=== PATIENT | male | born 1975 | race Caucasian/White ===

== ENCOUNTER 2017-09-16 20:17 | Inpatient (IN) | payer OTHER ==
[~2017-09-16] VITALS: Ht 170.2 cm; Wt 68.2 kg
--- NOTE | ~2017-09-16 | CON ---
[place], [place] REPORT OF CONSULTATION NAME: SUSANNE CHINO JR UNIT #: [id number] ROOM: 426 DOCTOR: ALYSHA IBRAHIM MD BIRTHDATE: [birth year] DOS: 09/17/2017 PULMONARY CONSULTATION CONSULTATION REQUESTED BY: Hospitalist services. REASON FOR CONSULTATION: Medical assessment and medical management for pulmonary standpoint for the bilateral pulmonary nodules. HISTORY OF PRESENT ILLNESS: The patient unable to give any history at this time, but noted drowsy with intermittent wakefulness and not accurately give any history. All the history contained document is reviewed of the patient's medical record documented by the other physician including primary care attending. This is a 41-year-old male who has been known with history of illicit drug use intravenously as well as the use of cocaine. The patient has been brought to the hospital, developed significant body ache, nausea, toothache, and described with symptoms of chest congestion and running fever at home. The symptoms had been described to be worsened. The duration of symptoms was unknown. The patient denies any symptoms of chest pain. She had been prescribed some antibiotic primary care physician for the medical management of toothache in the past one week. The patient denies any symptoms of hemoptysis. He denies any symptoms of chest trauma. The pain was described generalized in the chest and other parts of the body at this time. REVIEW OF SYSTEMS: CONSTITUTIONAL: Fatigue and tiredness was reported with the fever. EYES: Denies any burning, tenderness, discharge or redness. EARS, NOSE AND THROAT: Denies sore throat, hoarseness, otalgia, postnasal drainage or epistaxis. CARDIOVASCULAR: Denies angina pain, edema or pain of the lower extremity. GASTROINTESTINAL: Denies nausea, vomiting, diarrhea, abdominal pain, hematemesis, or melena. SKIN: Denies any lesions or rashes. CENTRAL NERVOUS SYSTEM: Denies any seizures, diplopia, or headache. The remaining systems were reviewed. They were noted all negative. PAST MEDICAL HISTORY: 1. Noted with history positive for use of the crack cocaine, IV heroin use and the fentanyl use as well. 2. History of hepatitis C. 3. Chronic nicotine abuse. SOCIAL HISTORY: The patient reported not . Tobacco use noted a pack of cigarettes per day for several years, started in the teens. Denies any history of alcohol use, but noted with IV drug abuse. PAST SURGICAL HISTORY: Reported: 1. Cholecystectomy. [place], [place] REPORT OF CONSULTATION NAME: SUSANNE CHINO JR UNIT #: [id number] ROOM: 426 DOCTOR: ALYSHA IBRAHIM MD BIRTHDATE: [birth year] 2. Carpal tunnel repair. FAMILY HISTORY: The patient's mother is living 59-year-old with history of hypertension, atrial fibrillation, history about the dad was unknown. HOME MEDICATIONS: None listed. DRUG ALLERGY HISTORY: The patient reported as no known drug allergies. PHYSICAL EXAMINATION: GENERAL: This is a 41-year-old white male who appeared to be a somewhat drug withdrawal at this time, symptom complaining of generalized pain with the decrease with other intermittent sleepiness and drowsiness. VITAL SIGNS: Height were recorded by the nursing staff on admission with height of 5 feet 7 inches, weight 150 pounds, BMI 23.5. Vital signs was noted as temperature of 100.6 Fahrenheit to low grade fever of 99.8 degree Fahrenheit, respiratory rate 19-24, heart rate of 129-105, blood pressure 122/86-116/62. Intake was 3300 mL, output 800 mL, since admission. Pulse oxygen saturation, 96% saturation on room air at rest. HEENT: Head was atraumatic. Eyes nonicterus. Oral mucosa was moist. NECK: Supple. CARDIOVASCULAR SYSTEM: S1, S2 is audible. LUNGS: Noted without any wheezing or crackles. Breaths sounds are noted mild to moderately decreased bilaterally. ABDOMEN: Soft, nontender. EXTREMITIES: The patient was noted without any edema, clubbing, cyanosis. SKIN: Visible skin does not show rashes or any needle track ponce with localized area of cellulitis on the visible skin. GENITOURINARY: The patient is unable to assess, but the patient does follow vocal commands and move his upper and lower extremities without any obvious focal neurologic deficit. MUSCULOSKELETAL: No deformities. LABORATORY DATA: The patient's urine drug screen on admission cocaine was noted greater than 300, opiates noted greater than 300. The influenza A and B, nasal washing antigen both noted negative. The lactic acid 3.3 on admission, on follow up 2.0. PT/INR yesterday noted normal on admission. The urinalysis was noted with 1+ bilirubin, 2+ protein and 1+ bacteria. The CMP yesterday on admission, normal BUN and creatinine. Sodium was noted decreased 129, potassium 3.3, chloride of 93. The patient was noted normal with correction of albumin, which are noted 2.8 and calcium 8.0 without correction. CBC that was done on admission, WBC count 12.8, hemoglobin 11.8, hematocrit 35.4, platelet count was normal. The troponin which was noted yesterday and this morning normal. CBC today: WBC count 11.5, hemoglobin 10.1, hematocrit 30.6, platelet count was normal. PT/INR noted at 1.2. Blood culture that was done on admission, the aerobic bottle noted gram-positive in clusters in first bottle. Second bottle aerobic, anaerobic blood culture was noted with Gram-positive cocci in clusters reported. The review of the radiology data was personally performed. Chest x-ray showed coarse markings with the patient present in the lungs bilaterally with patchy infiltration was suspected in the right lower lobe and in the left [place], [place] REPORT OF CONSULTATION NAME: SUSANNE CHINO JR UNIT #: [id number] ROOM: 426 DOCTOR: MARIBETH IBRAHIM MDM BIRTHDATE: [birth year] perihilar area of linear atelectasis. The patient was noted in the right lower lung base. There was no evidence of pneumothorax, pleural fluid or findings of congestive heart failure. The CT scan of the chest was completed yesterday for the patient that was personally reviewed. First the parenchymal images shows soft tissue density nodules were noted close to the subpleural area randomly present bilaterally with some area of ground glass opacities nodule formation as well. Evidence of old rib fracture was noted in the right posterior rib as well. The mediastinal structure because of lack of IV contrast cannot be clearly seen especially for the lymphadenopathy. IMPRESSION: 1. The patient who has been currently admitted to the hospital. Current symptoms were noted in combination strongly suspected or endocarditis very likely with a history of IV drug use. 2. The patient to be tested for the human immunodeficiency virus infection because of long-term IV use and medications. 3. Old rib fracture, 2 of them were noted in the 9th and 10th rib posteriorly. 4. The patient with a history of chronic nicotine dependence as well. PLAN OF MANAGEMENT: The patient would be continued on the antibiotics as ordered as vancomycin, Zosyn and azithromycin. The vancomycin needs to be the most important medication to be used. The other antibiotic certainly could be discontinued based on the current culture results. The patient will be recommended about cardiology consultation with transesophageal echocardiogram done. The patient definitively exclude the endocarditis. Closely monitor respiratory symptom and drug withdrawal and to be treated accordingly drug withdrawal protocol for opioids. Monitoring the respiratory symptom very closely. Supportive care therapy, plan of management. Continue to be done. Electrolyte imbalance ____ as well. Additional treatment changes or recommendation will be given based on the progression of the illness. Thanks for allowing me to participate in the care of this patient. ALYSHA FAM MD CM:CONSTR:REPORT OF CONSULTATION 1933 09/18/17 0458 interface
--- NOTE | ~2017-09-16 | CON ---
[place], [place] REPORT OF CONSULTATION NAME: SUSANNE CHINO JR UNIT #: [id number] ROOM: 426 DOCTOR: MITUL VILLANUEVA,DECEMBER BIRTHDATE: [birth year] DOS: 09/16/2017 HISTORY OF PRESENT ILLNESS: This is a 41-year-old male who was admitted yesterday from home complaining of body aches, nausea, toothache, chest congestion and fevers. He is an IV drug user, positive for uses of cocaine, heroin and fentanyl, last used yesterday morning. History is obtained per review of the chart. The patient is alert and moaning, wandering in his room complaining of pain all over, but will not answer most questions for review of systems. His admitting blood cultures are positive for gram-positive cocci in clusters. He is currently on Levaquin, vancomycin and Zosyn. Cardiology has been consulted and they are arranging a YENNY to evaluate for endocarditis. ID is consulted for Gram-positive cocci septicemia, likely Staphylococcus aureus due to IV drug use. PAST MEDICAL HISTORY: As above. He has a history of hepatitis C for which he has never gotten treatment as he has not been able to get clean in order to receive treatment. He is also a smoker 20 years 1 pack per day, history of carpal tunnel repair and cholecystectomy. SOCIAL HISTORY: As above. Nondrinker. Again, he is a smoker and polysubstance abuser. FAMILY MEDICAL HISTORY: Mother alive at the age of 59 with hypertension and AFib. Father's medical history is unknown. ALLERGIES: No known drug allergies. CURRENT MEDICATIONS: Include Levaquin, [place], vancomycin, Zosyn, [id number], Zithromax, Lovenox, Protonix, Zofran, Restoril, milk of magnesia and Dulcolax. RADIOLOGY: Abdominal ultrasound was unremarkable. Chest CT showed multiple noncalcified nodules and possible mild pneumonitis. REVIEW OF SYSTEMS: As above in history of present illness and again the patient will not give any review of systems. No emesis or diarrhea per nursing. He has been running fevers, low grade up to 100.6. LABORATORY DATA: WBCs were 12.8 on admission, down to 11.5 today and platelets 169. BUN 8, creatinine 0.83. LFTs within normal limits. Respiratory viral panel and influenza are pending. His tox screen was positive for opiates and cocaine. PHYSICAL EXAMINATION: VITAL SIGNS: Temperature 99.3, pulse 98, respirations 20 and BP 110/72. GENERAL: A 41-year-old male, in moderate distress, again wandering his room and somewhat incoherent complaining of pain all over, seems somewhat confused. HEAD, EYES, EARS, NOSE AND THROAT: Normocephalic, no visible thrush. NECK: Supple. LUNGS: Clear to auscultation bilaterally. Respirations even and unlabored. [place], [place] REPORT OF CONSULTATION NAME: SUSANNE CHINO JR UNIT #: [id number] ROOM: 426 DOCTOR: MITUL VILLANUEVA,DECEMBER BIRTHDATE: [birth year] HEART: Regular rhythm. No murmur appreciated. ABDOMEN: Soft, nondistended, positive bowel sounds. EXTREMITIES: No lower extremity edema or deformity. Some slight trace edema of his hands. No areas of cellulitis or phlebitis noted. SKIN: Warm, dry, free of rashes. He does have multiple tattoos. ASSESSMENT AND PLAN: Gram-positive cocci likely Staphylococcus septicemia due to his intravenous drug abuse. We will also check an human immunodeficiency virus. He is already known to be positive for hepatitis C and has not received treatment as he has not been able to get clean. He is to be set up a YENNY for Cardiology. Stop the Zithromax and Zosyn. Continue the vancomycin. Follow up on repeat blood cultures. Case discussed with Dr. Idalia Moeller. JONELLE KAY BAUMAN IDALIA MOELLER MD CM:CONSTR:REPORT OF CONSULTATION 1703 09/18/17 0121 interface
--- NOTE | ~2017-09-16 | PR ---
[place], [place] PROGRESS NOTE NAME: SUSANNE CHINO JR UNIT #: [id number] ROOM: 426 DOCTOR: SARWAT RODRIGUEZ MD,ALYSHA BIRTHDATE: [birth year] DOS: 09/20/2017 SUBJECTIVE: The patient has been noted comfortable at this time, resting on the bed. Denies symptoms of chest pain. She does not have any symptoms of cough or any sputum expectoration. The body aches of the patient was noted better. OBJECTIVE: VITAL SIGNS: Low grade fever noted 100 degrees Fahrenheit of the patient yesterday and noted afebrile this morning. The respiratory rate 18, heart rate 80, blood pressure 140/87. The pulse oxygen saturation on room air 98% saturation. HEENT: Examination shows head was atraumatic. Eyes nonicterus. NECK: Supple. CARDIOVASCULAR: S1, S2 audible. LUNGS: Clear. ABDOMEN: Soft, nontender. EXTREMITIES: Does not show any deformities. SKIN: No lesions or rashes. MUSCULOSKELETAL: The patient was noted any deformities. CENTRAL NERVOUS SYSTEM: Intact without any focal deficit. LABORATORY DATA: The patient's HIV tested for generation, was noted as negative. The echocardiogram for the patient that was completed, transesophageal echocardiogram yesterday for the patient done by Dr. Steward for the patient reported with findings of aortic valve vegetation as well as the atrial side of the septal leaflets and tricuspid valve was also noted with vegetation as well. [id number]-[id number] tricuspid valvular regurgitation was also reported. Left ventricle ejection fraction was noted normal. IMPRESSION: 1. The patient with bacterial endocarditis of the patient with bacteremia gram-positive organs. Methicillin-resistant Staphylococcus aureus for this patient was noted with blood cultures. Negative HIV status. The patient has history of IV drug use. 2. Septic emboli for this patient noted in the lungs consistent with current diagnosis corresponding. PLAN OF MANAGEMENT: Continue antibiotics for this patient at this time per recommendation by the Infectious Disease specialist for the endocarditis Close monitoring will be continued. If the patient remained persistently bacteremic, he may require a surgical intervention for the current ____ might be needed. Continue other supportive therapy, plan of management, and care plan. Usual treatment. Additional treatment changes will be ordered for the patient based on progression of the illness. [place], [place] PROGRESS NOTE NAME: LULÚ DEVISUSANNE CHAVEZT #: [id number] UNIT #: [id number] ROOM: 426 DOCTOR: ALYSHA IBRAHIM MD BIRTHDATE: [birth year] ALYSHA FAM MD CM:PNTRANS [id number] ALYSHA RODRIGUEZ MD 09/21/17238 interface
--- NOTE | ~2017-09-16 | PR ---
[place], [place] PROGRESS NOTE NAME: SUSANNE CHINO JR UNIT #: [id number] ROOM: 426 DOCTOR: SARWAT RODRIGUEZ MD,ALYSHA BIRTHDATE: [birth year] DOS: 09/19/2017 SUBJECTIVE: He has been currently noted n.p.o. and plan for further workup to be done for possibility of endocarditis with current appear like septic emboli in the lungs. He has not been noted any symptoms of chest pain. He does have some cough which remains nonproductive. OBJECTIVE: VITAL SIGNS: Which has been recorded showed the temperature noted normal, respiratory rate 17, heart rate 85, blood pressure 111/75. Pulse oxygen saturation on room air was 98% saturation. HEAD, EARS, EYES, NOSE AND THROAT: Showed no acute change. NECK: Supple. CARDIOVASCULAR SYSTEM: S1, S2 is audible. LUNGS: Noted without any crackles or wheezing. Breaths are noted mildly diminished bilaterally. ABDOMEN: Soft, nontender. LABORATORY DATA: MRI of the thoracic spine done, which was noted as normal. Urine culture was also noted with light growth of MRSA isolation. IMPRESSION: Possibility of septic emboli with IV drug use. Further workup and any additional problem the patient has been noted in progress. History of chronic nicotine dependence as well. PLAN OF MANAGEMENT: No changes in the plan of therapy at this time will be needed. Continuation of all other therapy, plan and management as previously. Usual care. ALYSHA FAM MD CM:PNTRANS [id number] ALYSHA RODRIGUEZ MD 09/19/172002 interface
--- NOTE | ~2017-09-16 | PR ---
[place], [place] PROGRESS NOTE NAME: SUSANNE CHINO JR UNIT #: [id number] ROOM: 426 DOCTOR: MYLENE VAZQUEZDEMIAN BIRTHDATE: [birth year] DOS: 09/22/2017 SUBJECTIVE: The patient was seen and examined at bedside. The patient was sitting upright in the bed in no acute distress. The patient has no new complaints today, reports that he feels like he is getting better. The patient understands the current plan as far as antibiotics long-term to help treat his endocarditis. No change in patient's clinical status from yesterday. Blood cultures from the were positive for gram-positive cocci in clusters. OBJECTIVE: VITAL SIGNS: Temperature 98.0, pulse is 66, respirations 20, blood pressure 110/64, pulse ox is 94% on room air. GENERAL APPEARANCE: The patient is alert and oriented times 3, in mild distress. HEENT: Eyes are clear. No injection. Nares are patent. Mucous membranes are moist. NECK: Supple, nontender. CARDIOVASCULAR: S1 and S2 noted. Regular rate and rhythm. No murmurs, gallops or rubs. PULMONARY: Lungs are clear to auscultation. No wheezes, no rales. ABDOMEN: Soft, nontender with positive bowel sounds. EXTREMITIES: No cyanosis, no clubbing, no erythema, no edema. NEUROLOGIC: No focal deficits. SKIN: No rashes or erythema noted on the skin exam. IMPRESSION: 1. Bacterial endocarditis with bacteremia, gram-positive for MRSA. Blood cultures have been positive times 3, negative HIV lab. Endocarditis on both the tricuspid and the aortic valve, history of IV drug abuse. 2. Septic emboli to the lungs from the endocarditis. PLAN OF CARE: Continue current antibiotics being directed by the infectious disease team. No change in respiratory care of this patient. The patient will need IV antibiotics for a minimum of 6 weeks. Primary team is working on the plan with social media project manager for the care of this patient and for discharge planning. DEMIAN CHAKRABORTY DO [place], [place] PROGRESS NOTE NAME: SUSANNE CHINO JR UNIT #: [id number] ROOM: 426 DOCTOR: DEMIAN CHAKRABORTY DO BIRTHDATE: [birth year] ALYSHA FAM MD CM:JOSE ALBERTO [id number] DEMIAN CHAKRABORTY DO 09/22/17 1234 interface
--- NOTE | ~2017-09-16 | PR ---
[place], [place] PROGRESS NOTE NAME: SUSANNE CHINO JR UNIT #: [id number] ROOM: 426 DOCTOR: SUNNI VILLAFUERTE,IDALIA Barron BIRTHDATE: [birth year] DOS: 09/17/2017 ADDENDUM After reviewing the chart, labs, radiographs and microbiology, I agree with the above plans as described. We will follow the patient up clinically and adjust accordingly. IDALIA MOELLER MD CM:PNTRANS [id number] 5 IDALIA MOELLER MD 09/18/17915 interface
--- NOTE | ~2017-09-16 | PR ---
[place], [place] PROGRESS NOTE NAME: SUSANNE CHINO JR UNIT #: [id number] ROOM: 426 DOCTOR: DEMIAN CHAKRABORTY DO BIRTHDATE: [birth year] DOS: 09/21/2017 SUBJECTIVE: The patient was seen and examined at bedside. The patient was sitting upright in bed. The patient is in no acute distress at this time. The patient complains of no new symptoms this morning. The patient understands the current treatment plan and we are currently working with Drum Stenciler to come up with an ultimate plan where the patient can be discharged for further treatment from the hospital. OBJECTIVE: VITAL SIGNS: Temperature 98.2, pulse is 84, respirations 18, blood pressure 110/64, pulse ox is 93% on room air. LABS: White count 8.7, hemoglobin 10.9, hematocrit 33.2, platelets are 244. BMP this morning was normal. GENERAL APPEARANCE: The patient is alert and oriented x 3, in no acute distress. HEENT: Head is atraumatic, normocephalic. Eyes are clear to injection. NECK: Supple. No tenderness. CARDIOVASCULAR: S1 and S2 is audible. No murmurs, gallops or rubs. LUNGS: Clear to auscultation. ABDOMEN: Soft, nontender. EXTREMITIES: No deformities. SKIN: No rashes. MUSCULOSKELETAL: Normal exam. NEUROLOGIC: Intact without any gross focal deficits. IMPRESSION: 1. Bacterial endocarditis with bacteremia, gram-positive for MRSA. Negative HIV labs. The patient is an IV drug user. 2. Septic emboli to the lungs from the endocarditis. PLAN OF CARE: Current antibiotics being directed by the Infectious Disease team. Agree with the current antibiotics, currently ordered. Continue with close monitoring. The patient will need a minimum of 6 weeks of IV antibiotics for his endocarditis. No change in current plan or therapy at this time. We will continue to follow. DEMIAN CHAKRABORTY [place], [place] PROGRESS NOTE NAME: SUSANNE CHINO JR UNIT #: [id number] ROOM: 426 DOCTOR: DEMIAN CHAKRABORTY DO BIRTHDATE: [birth year] ALYSHA FAM MD CM:PNGILES 12 31 DEMIAN CHAKRABORTY DO 09/21/171331 interface
--- NOTE | ~2017-09-16 | PR ---
[place], [place] PROGRESS NOTE NAME: SUSANNE CHINO JR UNIT #: [id number] ROOM: 426 DOCTOR: SUNNI VILLAFUERTE,IDALIA Barron BIRTHDATE: [birth year] DOS: 09/18/2017 ADDENDUM. I agree with the above plans as described. We will continue to follow the patient up clinically and adjust accordingly. IDALIA MOELLER MD CM:PNTRANS [id number] [id number] IDALIA MOELLER MD 09/19/17 1320 interface
--- NOTE | ~2017-09-16 | PR ---
[place], [place] PROGRESS NOTE NAME: SUSANNE CHINO JR UNIT #: [id number] ROOM: 426 DOCTOR: MITUL VILLANUEVA,DECEMBER BIRTHDATE: [birth year] DOS: SUBJECTIVE: The patient is a 41-year-old IV drug user who was admitted with Gram-positive cocci in clusters in his blood. His blood cultures from the 5th and 6th are all growing gram-positive cocci in clusters. His influenza screen was negative. His blood cultures from today are pending. He is currently complaining of pain all over, but primarily in his upper back and neck. He denies any numbness or tingling or weakness of his arms or hands or lower extremities. No nausea, vomiting or diarrhea. No rash or itch. No cough or shortness of breath. He has been afebrile. LABORATORY DATA: WBC is 11.3, platelets 170. BUN 5, creatinine 0.72. Vancomycin trough was 4.1, dose has been adjusted per pharmacy. CURRENT MEDICATIONS: Include vancomycin, Percocet, Toradol, vitamin D, Requip, Robaxin, Vistaril, Bentyl, Lovenox, Protonix, Restoril, milk of mag. REVIEW OF SYSTEMS: Further review of systems is unremarkable. PHYSICAL EXAMINATION: VITAL SIGNS: Show temperature 97.9, pulse 96, respirations 20, BP 102/58. GENERAL: A 41-year-old male, somewhat in distress. HEAD, EYES, EARS, NOSE AND THROAT: Normocephalic, no thrush. Tender along the cervical spine as well as upper thoracic. LUNGS: Crackles bilateral bases. Respirations slightly labored due to pain. HEART: Regular rhythm. No murmur appreciated. ABDOMEN: Soft, nondistended, positive bowel sounds. EXTREMITIES: Trace edema of the left upper extremity, otherwise no peripheral edema, no cyanosis or deformity. SKIN: Warm, dry, free of rashes. Multiple tattoos noted. ASSESSMENT: Staph septicemia with likely endocarditis due to IV drug abuse with a significant concern for possible thoracic involvement or cervical. PLAN: He needs to have an MRI of thoracic and cervical spine with and without contrast. Continue the IV vancomycin and watch the creatinine. He is requiring quite a high dose to get his levels up to therapeutic. Follow up on repeat blood cultures from today and repeat blood cultures again tomorrow. He has already been seen by Dr. Bauman with Cardiology who is arranging for a YENNY to be done on Tuesday. Case discussed with Dr. Idalia Moeller. DECEMBER KAY BAUMAN [place], [place] PROGRESS NOTE NAME: SUSANNE CHINO JR UNIT #: [id number] ROOM: 426 DOCTOR: MITUL VILLANUEVA,DECEMBER BIRTHDATE: [birth year] IDALIA MOELLER MD CM:PNGILES 09 11 MITUL VILLANUEVA 09/18/171811 interface
--- NOTE | ~2017-09-16 | PR ---
[place], [place] PROGRESS NOTE NAME: SUSANNE CHINO JR UNIT #: [id number] ROOM: 426 DOCTOR: SARWAT RODRIGUEZ MD,ALYSHA BIRTHDATE: [birth year] DOS: 09/18/2017 PULMONARY PROGRESS NOTE SUBJECTIVE: The patient has not been noted any ongoing new complaints, still complaining of pain and aches in the body. He does not have any coughing, sputum expectoration. Denies any chest pain. He does not have symptoms of hemoptysis and remains afebrile. OBJECTIVE: VITAL SIGNS: Normal temperature, respiratory rate 20, heart rate 96, blood pressure 112/58. The pulse oxygen saturation on room air 94% saturation. HEENT: No new change. NECK: Supple. CARDIOVASCULAR: S1, S2 audible. LUNGS: Noted without any wheezing or crackles at this time. ABDOMEN: Soft, nontender. IMPRESSION: Possibility of endocarditis with history of illicit drug use and dependence on opiates, heroin as well as cocaine. PLAN OF MANAGEMENT: No change in pulmonary standpoint. Further cardiac workup for the patient has been initiated. Appropriate consultations were ordered for cardiology services and infectious disease specialist. ALYSHA FAM MD CM:JOSE ALBERTO [phone] ALYSHA RODRIGUEZ MD 09/19/17215 interface
--- NOTE | ~2017-09-16 | PR ---
[place], [place] PROGRESS NOTE NAME: SUSANNE CHINO JR UNIT #: [id number] ROOM: 426 DOCTOR: ALYSHA IBRAHIM MD BIRTHDATE: [birth year] DOS: 09/21/2017 ADDENDUM SUBJECTIVE: The patient was independently seen and examined today with [id number] encounter. The patient history was confirmed. Physical examination performed. All the lab for the patient available in the computer were reviewed. The assessment, management recommendation personally made. Note done by the medical dosimetrist was approved as well. He has been noted comfortable at this time without any acute distress, pain, coughing, or sputum expectoration, chest pain. OBJECTIVE: VITAL SIGNS: The patient was noted as afebrile status, respiratory rate 18, heart rate 84, blood pressure was normal. The pulse oxygen saturation was recorded as 90% on room air. HEAD, EARS, EYES, NOSE AND THROAT: Noted without any acute changes. LUNGS: Clear to auscultation bilaterally. ABDOMEN: Soft, nontender. EXTREMITIES: Without any edema. LABORATORY DATA: Blood culture from 09/19 one of every 2 bottle aerobic bottle, both was noted as Gram-positive cocci in clusters. IMPRESSION: The patient with findings of bilateral septic pulmonary emboli related to the endocarditis of the tricuspid, and the aortic valve. Persistent bacteremia was still noted. PLAN OF MANAGEMENT: Antibiotic recommendation per the Infectious Disease Services. Continue pulmonary management. The patient without any changes. Obtain a routine chest x-ray to reassess. The progression of the previous septic emboli visible. Other supportive plan of management will be continued without any changes. [place], [place] PROGRESS NOTE NAME: SUSANNE CHINO JR UNIT #: [id number] ROOM: 426 DOCTOR: ALYSHA IBRAHIM MD BIRTHDATE: [birth year] ALYSHA FAM MD CM:PNTRANS [phone] ALYSHA RODRIGUEZ MD 09/21/171942 interface
--- NOTE | ~2017-09-16 | PR ---
[place], [place] PROGRESS NOTE NAME: SUSANNE CHINO JR UNIT #: [id number] ROOM: 426 DOCTOR: SARWAT RODRIGUEZ MD,ALYSHA BIRTHDATE: [birth year] DOS: 09/22/2017 The patient was independently seen and examined, [id number] encounter, history was confirmed. Physical examination was performed personally. The patient has not been reporting any symptoms of shortness of breath, coughing, chest pain or sputum expectoration. Continue to get intravenous antibiotic treatment for the MRSA infection, noted persistent positive bacteremia for this patient with different cultures. The patient has been currently planned for the possible discharge for intravenous therapy. PHYSICAL EXAMINATION: Personally performed, does not show any abnormal wheezing, crackles, or heart murmurs. The abdomen noted, soft, nontender. Extremities without any edema. Pulse oxygen saturation on room air was noted 94%. LABORATORY DATA: Review for this patient of 09/20, blood culture was noted gram-positive cocci in clusters and 09/19 culture also noted positive for same organism as MRSA previously isolated. BUN and creatinine was noted as normal. IMPRESSION: The patient has been noted with severe endocarditis of 2 valve with aortic and tricuspid valve with a pulmonary nodule. The patient has septic emboli. History of intravenous drug use, negative HIV status, which were tested on this admission. PLAN OF TREATMENT: From the pulmonary standpoint, the patient would be continue to take antibiotics as ordered. The patient under guidance of the Infectious Disease specialist. The chest x-ray of the patient, which was noted yesterday was noted with interstitial marking increased without any large pulmonary infiltration, cavitation or other abnormalities. Agree with the note of patient which was done by the medical van driver for the patient today's followup visit as well. ALYSHA FAM MD CM:JOSE ALBERTO [phone] ALYSHA RODRIGUEZ MD 09/23/17 1056 interface
--- NOTE | ~2017-09-16 | PR ---
[place], [place] PROGRESS NOTE NAME: SUSANNE CHINO JR [facility] [id number] UNIT #: [id number] ROOM: 426 DOCTOR: TOYIN WHITE MD BIRTHDATE: [birth year] DOS: 09/19/2017 CARDIOLOGY PROGRESS NOTE. The patient was seen at his bedside today, 09/19/2017 for followup of Gram-positive bacteremia. He feels "like shit" and tells me that he is thirsty and hurts all over. He denies dyspnea or cough. LABORATORY DATA: Review of his laboratory studies show that he has had several positive blood cultures for Staph aureus as well as a urine culture positive for Staph aureus. His white count has been elevated at 12,800, but is falling steadily. He is anemic with the hemoglobin of 9.7. He does not show any signs of acute renal injury. PHYSICAL EXAMINATION: VITAL SIGNS: Today, his pulse is 98 and regular, blood pressure is 110/67. He is afebrile. NECK: Supple. He has no jugular distention. Carotids are full. LUNGS: Respirations are unlabored. His chest is clear. HEART: Has a regular rhythm. He has a fourth heart sound, but no third heart sound. There is a grade 2/6 systolic ejection murmur along the left sternal border, but no diastolic murmurs. The PMI is not displaced. ABDOMEN: Benign. EXTREMITIES: Showed no edema. Peripheral pulses are palpable in the feet. IMPRESSION: 1. Multiple blood cultures positive for gram-positive cocci in clusters. Identification of the organism is Staph aureus and it is felt to be an MRSA. 2. History of multiple drug abuse including intravenous drug abuse. 3. History of hepatitis C. 4. Severe protein calorie malnutrition. 5. Tobacco abuse. 6. Cocaine abuse. 7. Heroin abuse. PLAN: The patient almost certainly does have endocarditis. We will proceed with a transesophageal echocardiogram today to determine the extent of his infection and document the existence and extent of cardiac complications. If bulky vegetations are seen then he probably will need to be transferred to a tertiary facility for surgical management. I did discuss transesophageal echocardiography with the patient today including risk of sore throat, vomiting, aspiration pneumonia, anesthesia reactions, etc. The patient understands and agrees to proceed. [place], [place] PROGRESS NOTE NAME: SUSANNE CHINO JR UNIT #: [id number] ROOM: 426 DOCTOR: TOYIN WHITE MD BIRTHDATE: [birth year] TOYIN WHITE MD CM:PNTRANS [id number] TOYIN WHITE MD 09/19/17 1149 interface
[~2017-09-16 20:17] MED LIST: BACTRIM DS 8001 TA1 PO; CEPHALEXIN500 M1 PO; CLEOCIN150 MG PO; HYDROCODONE BIT1 T11 PO; METHADONE10 MG PO; NAPROSYN500 MG PO; VIBRAMYCIN100 MG PO; VICODIN ES 7501 TAB PO; ZOFRAN4 MG PO
[2017-09-16 20:29] VITALS: BP 115/67
[2017-09-16 20:44] LABS: BILIRUBIN 1+ (NEGATIVE); BLOOD 2+ (NEGATIVE); CLARITY SL CLOUDY (CLEAR); COLOR YELLOW (YELLOW); GLUCOSE NEGATIVE (NEGATIVE); KETONE TRACE (NEGATIVE); LEUKO ESTERASE NEGATIVE (NEGATIVE); NITRITE NEGATIVE (NEGATIVE); PH 6.5 (5.0-9.0)
[2017-09-16 20:50] LABS: BACTERIA 1+
[2017-09-16 20:52] LABS: MUCOUS 1+
[2017-09-16 20:53] LABS: RBC 21-30 rbc/hpf (0-2)
[2017-09-16 20:58] LABS: URINE AMPHETAMINES < 1000 (1000ng/ml); URINE BARBITURATES < 200 (200ng/ml); URINE BENZODIAZEPINES < 200 (200ng/ml); URINE CANNABINOIDS (THC) < 50 (50ng/ml); URINE COCAINE > 300 (300ng/ml); URINE METHADONE < 300 (300ng/ml); URINE OPIATES > 300 (300ng/ml)
[2017-09-16 21:01] LABS: URINE PHENCYCLIDINE < 25 (25ng/ml)
[2017-09-16 21:25] LABS: HEMATOCRIT 35.4 % (42.0-52.0); HEMOGLOBIN 11.8 g/dl (14.0-18.0); MEAN CELL VOLUME 88.1 fl (80.0-94.0); MEAN CORPUSCULAR HGB 29.4 pg (27.0-31.0); MEAN CORPUSCULAR HGB CONC 33.3 g/dl (33.0-37.0); MEAN PLATELET VOLUME 10.7 fl (9.6-12.3); PLATELET COUNT AUTOMATED 199 10*3/uL (130-400); RED BLOOD COUNT 4.02 10*6/uL (4.50-5.90); RED CELL DISTRI WIDTH 14.4 % (0-14.5); WHITE BLOOD COUNT 12.8 10*3/uL (4.8-10.8)
[2017-09-16 21:37] LABS: INTERNATIONAL NORM RATIO 1.1 (2.0-3.5)
[2017-09-16 21:43] LABS: ALBUMIN 2.8 gm/dl (3.1-4.5); ALKALINE PHOSPHATASE 109 U/L (45-117); BUN 11 mg/dl (7-24); CHLORIDE 93 mmol/L (98-107); CREATININE 0.82 mg/dL (0.70-1.30); LIPASE 94 U/L (73-393); POTASSIUM 3.3 mmol/L (3.5-5.1); SGOT/AST 30 IU/L (3-35); SGPT/ALT 25 U/L (12-78); SODIUM 129 mmol/L (136-145); TOTAL PROTEIN 7.5 gm/dL (6.4-8.2)
[2017-09-16 21:50] LABS: TOTAL CELLS COUNTED 100 #CELLS
[2017-09-16 21:51] LABS: PLATELET SUFFICIENCY NORMAL (NORMAL); POLYCHROMASIA SLIGHT
[2017-09-16 22:24] VITALS: BP 122/68
[2017-09-16 22:53] VITALS: BP 116/62
[2017-09-16 23:10] VITALS: BP 104/62
[2017-09-17] VITALS: BP 123/72
[2017-09-17 04:00] VITALS: BP 105/52
[2017-09-17 04:32] LABS: BASO % 0.1 % (0.0-1.0); HEMATOCRIT 30.6 % (42.0-52.0); HEMOGLOBIN 10.1 g/dl (14.0-18.0); LYMPH # 0.6 10*3/uL (1.3-4.4); MEAN CELL VOLUME 90.3 fl (80.0-94.0); MEAN CORPUSCULAR HGB 29.8 pg (27.0-31.0); MEAN PLATELET VOLUME 10.7 fl (9.6-12.3); MONO # 0.6 10*3/uL (0.1-1.0); MONO % 5.1 % (3.0-9.0); NEUT # 10.2 10*3/uL (2.3-7.9); NEUT % 89.1 % (47.0-73.0); PLATELET COUNT AUTOMATED 169 10*3/uL (130-400); RED BLOOD COUNT 3.39 10*6/uL (4.50-5.90); RED CELL DISTRI WIDTH 14.6 % (0-14.5); WHITE BLOOD COUNT 11.5 10*3/uL (4.8-10.8)
[2017-09-17 04:51] LABS: INTERNATIONAL NORM RATIO 1.2 (2.0-3.5)
[2017-09-17 04:57] LABS: ALBUMIN 2.2 gm/dl (3.1-4.5); ALKALINE PHOSPHATASE 88 U/L (45-117); BUN 8 mg/dl (7-24); CHLORIDE 99 mmol/L (98-107); CHOLESTEROL 74 mg/dL (<200); CREATININE 0.83 mg/dL (0.70-1.30); HDL CHOLESTEROL 12 mg/dl (40-60); LDL CHOLESTEROL 39 mg/dL (9-159); PHOSPHOROUS 1.8 mg/dL (2.5-4.9); POTASSIUM 3.7 mmol/L (3.5-5.1); SGOT/AST 23 IU/L (3-35); SGPT/ALT 19 U/L (12-78); SODIUM 132 mmol/L (136-145); TOTAL PROTEIN 6.2 gm/dL (6.4-8.2); TRIGLYCERIDES 116 mg/dl (<150); VLDL CHOLESTEROL 23 mg/dL (6-40)
[2017-09-17 07:43] LABS: VITAMIN D, 25-HYDROXY 15.2 ng/mL (30-100)
[2017-09-17 08:00] VITALS: BP 122/86
[2017-09-17 12:00] VITALS: BP 111/75; BP 118/86
[2017-09-17 16:00] VITALS: BP 110/72
[2017-09-17 20:00] VITALS: BP 102/59
[2017-09-18] VITALS: BP 97/53
[2017-09-18 05:40] LABS: BUN 5 mg/dl (7-24); CHLORIDE 103 mmol/L (98-107); CREATININE 0.72 mg/dL (0.70-1.30); PHOSPHOROUS 3.2 mg/dL (2.5-4.9); SODIUM 137 mmol/L (136-145)
[2017-09-18 05:52] LABS: POTASSIUM 5.2 mmol/L (3.5-5.1)
[2017-09-18 08:00] VITALS: BP 98/58
[2017-09-18 08:03] LABS: BASO % 0.2 % (0.0-1.0); EOS % 0.3 % (1.0-4.0); HEMATOCRIT 28.6 % (42.0-52.0); HEMOGLOBIN 9.8 g/dl (14.0-18.0); LYMPH % 9.2 % (27.0-41.0); MEAN CELL VOLUME 88.3 fl (80.0-94.0); MEAN CORPUSCULAR HGB 30.2 pg (27.0-31.0); MEAN CORPUSCULAR HGB CONC 34.3 g/dl (33.0-37.0); MEAN PLATELET VOLUME 10.4 fl (9.6-12.3); MONO # 0.9 10*3/uL (0.1-1.0); MONO % 8.3 % (3.0-9.0); NEUT # 9.2 10*3/uL (2.3-7.9); NEUT % 81.3 % (47.0-73.0); PLATELET COUNT AUTOMATED 170 10*3/uL (130-400); RED BLOOD COUNT 3.24 10*6/uL (4.50-5.90); RED CELL DISTRI WIDTH 14.8 % (0-14.5); WHITE BLOOD COUNT 11.3 10*3/uL (4.8-10.8)
[2017-09-18 12:00] VITALS: BP 114/62
[2017-09-18 16:00] VITALS: BP 102/58
[2017-09-18 20:00] VITALS: BP 98/51
[2017-09-19] VITALS (9 sets, daily range): BP systolic 91–131; BP diastolic 53–77
[2017-09-19 06:32] LABS: BASO % 0.2 % (0.0-1.0); EOS % 0.4 % (1.0-4.0); HEMATOCRIT 29.2 % (42.0-52.0); HEMOGLOBIN 9.7 g/dl (14.0-18.0); LYMPH # 1.1 10*3/uL (1.3-4.4); LYMPH % 10.9 % (27.0-41.0); MEAN CORPUSCULAR HGB 29.2 pg (27.0-31.0); MEAN CORPUSCULAR HGB CONC 33.2 g/dl (33.0-37.0); MEAN PLATELET VOLUME 10.4 fl (9.6-12.3); MONO # 0.7 10*3/uL (0.1-1.0); MONO % 7.5 % (3.0-9.0); NEUT # 7.9 10*3/uL (2.3-7.9); NEUT % 80.3 % (47.0-73.0); PLATELET COUNT AUTOMATED 161 10*3/uL (130-400); RED BLOOD COUNT 3.32 10*6/uL (4.50-5.90); WHITE BLOOD COUNT 9.9 10*3/uL (4.8-10.8)
[2017-09-19 06:41] LABS: BUN 6 mg/dl (7-24); CHLORIDE 104 mmol/L (98-107); CREATININE 0.64 mg/dL (0.70-1.30); SODIUM 135 mmol/L (136-145)
[2017-09-20] VITALS: BP 123/72
[2017-09-20 02:56] LABS: BASO % 0.3 % (0.0-1.0); EOS % 0.4 % (1.0-4.0); HEMATOCRIT 31.8 % (42.0-52.0); HEMOGLOBIN 10.7 g/dl (14.0-18.0); LYMPH # 1.5 10*3/uL (1.3-4.4); MEAN CELL VOLUME 87.4 fl (80.0-94.0); MEAN CORPUSCULAR HGB 29.4 pg (27.0-31.0); MEAN CORPUSCULAR HGB CONC 33.6 g/dl (33.0-37.0); MEAN PLATELET VOLUME 9.6 fl (9.6-12.3); MONO # 0.8 10*3/uL (0.1-1.0); MONO % 8.3 % (3.0-9.0); NEUT # 6.9 10*3/uL (2.3-7.9); NEUT % 74.1 % (47.0-73.0); RED BLOOD COUNT 3.64 10*6/uL (4.50-5.90); RED CELL DISTRI WIDTH 14.8 % (0-14.5); WHITE BLOOD COUNT 9.3 10*3/uL (4.8-10.8)
[2017-09-20 03:00] LABS: PLATELET COUNT AUTOMATED 219 10*3/uL (130-400)
[2017-09-20 03:10] LABS: BUN 5 mg/dl (7-24); CHLORIDE 104 mmol/L (98-107); CREATININE 0.64 mg/dL (0.70-1.30); POTASSIUM 3.7 mmol/L (3.5-5.1); SODIUM 137 mmol/L (136-145)
[2017-09-20 04:00] VITALS: BP 123/72
[2017-09-20 08:00] VITALS: BP 131/91
[2017-09-20 08:11] LABS: HIV 1+2 AB + HIV1 P24 AG Non Reactive (Non Reactive)
[2017-09-20 12:00] VITALS: BP 140/87
[2017-09-20 16:00] VITALS: BP 136/82
[2017-09-20 19:37] VITALS: BP 114/68
[2017-09-21] VITALS: BP 106/59
[2017-09-21 02:05] LABS: ADENOVIRUS Negative (Negative); INFLUENZA A Negative (Negative); INFLUENZA B Negative (Negative); METAPNEUMOVIRUS Negative (Negative); PARAINFLUENZA 1 Negative (Negative); PARAINFLUENZA 2 Negative (Negative); PARAINFLUENZA 3 Negative (Negative); RHINOVIRUS Negative (Negative); RSV A Negative (Negative); RSV B Negative (Negative)
[2017-09-21 07:15] LABS: BASO % 0.3 % (0.0-1.0); EOS # 0.1 10*3/uL (0.0-0.4); HEMATOCRIT 33.2 % (42.0-52.0); HEMOGLOBIN 10.9 g/dl (14.0-18.0); LYMPH # 1.5 10*3/uL (1.3-4.4); LYMPH % 17.2 % (27.0-41.0); MEAN CELL VOLUME 89.5 fl (80.0-94.0); MEAN CORPUSCULAR HGB 29.4 pg (27.0-31.0); MEAN CORPUSCULAR HGB CONC 32.8 g/dl (33.0-37.0); MEAN PLATELET VOLUME 9.7 fl (9.6-12.3); MONO # 0.6 10*3/uL (0.1-1.0); MONO % 6.3 % (3.0-9.0); NEUT # 6.5 10*3/uL (2.3-7.9); NEUT % 74.3 % (47.0-73.0); PLATELET COUNT AUTOMATED 244 10*3/uL (130-400); RED BLOOD COUNT 3.71 10*6/uL (4.50-5.90); RED CELL DISTRI WIDTH 14.6 % (0-14.5); WHITE BLOOD COUNT 8.7 10*3/uL (4.8-10.8)
[2017-09-21 07:41] LABS: BUN 5 mg/dl (7-24); CHLORIDE 104 mmol/L (98-107); CREATININE 0.62 mg/dL (0.70-1.30); POTASSIUM 3.9 mmol/L (3.5-5.1); SODIUM 136 mmol/L (136-145)
[2017-09-21 08:00] VITALS: BP 110/64
[2017-09-21 12:00] VITALS: BP 112/61
[2017-09-21 16:00] VITALS: BP 112/68
[2017-09-21 20:00] VITALS: BP 111/74
[2017-09-22] VITALS: BP 110/88
[2017-09-22 06:52] LABS: BASO % 0.4 % (0.0-1.0); EOS # 0.1 10*3/uL (0.0-0.4); EOS % 1.2 % (1.0-4.0); HEMATOCRIT 33.8 % (42.0-52.0); HEMOGLOBIN 11.2 g/dl (14.0-18.0); LYMPH # 1.4 10*3/uL (1.3-4.4); LYMPH % 17.5 % (27.0-41.0); MEAN CELL VOLUME 89.7 fl (80.0-94.0); MEAN CORPUSCULAR HGB 29.7 pg (27.0-31.0); MEAN CORPUSCULAR HGB CONC 33.1 g/dl (33.0-37.0); MEAN PLATELET VOLUME 9.8 fl (9.6-12.3); MONO # 0.5 10*3/uL (0.1-1.0); MONO % 6.1 % (3.0-9.0); NEUT # 5.7 10*3/uL (2.3-7.9); PLATELET COUNT AUTOMATED 265 10*3/uL (130-400); RED BLOOD COUNT 3.77 10*6/uL (4.50-5.90); RED CELL DISTRI WIDTH 14.5 % (0-14.5); WHITE BLOOD COUNT 7.7 10*3/uL (4.8-10.8)
[2017-09-22 07:30] VITALS: BP 110/64
[2017-09-22 07:34] LABS: BUN 10 mg/dl (7-24); CHLORIDE 103 mmol/L (98-107); CREATININE 0.76 mg/dL (0.70-1.30); POTASSIUM 4.1 mmol/L (3.5-5.1); SODIUM 135 mmol/L (136-145)
== END 2017-09-22 10:32 | disposition left against medical advice (07) | DRG 871 ==
LOC: ED 20:17 → 4E 22:18 → EDHOLD 22:18 → 4E 22:23
PROVIDERS: Hospitalist; Internal Medicine; Internal Medicine Hospice and Palliative Medicine; Nurse Practitioner; Physician Assistant
PROC: B246ZZ4 Ultrasonography of Right and Left Heart, Transesophageal (ICD-10-PCS; principal; 2017-09-19)
DX: A41.02 Sepsis due to Methicillin resistant Staphylococcus aureus (principal); J18.9 Pneumonia, unspecified organism; I26.90 Septic pulmonary embolism without acute cor pulmonale; E43 Unspecified severe protein-calorie malnutrition; I33.0 Acute and subacute infective endocarditis; E87.2 Acidosis; S22.41XA Multiple fractures of ribs, right side, initial encounter for closed fracture; E87.1 Hypo-osmolality and hyponatremia; B81.2 Trichostrongyliasis; J98.11 Atelectasis; R65.20 Severe sepsis without septic shock; E87.6 Hypokalemia; F11.10 Opioid abuse, uncomplicated; F14.10 Cocaine abuse, uncomplicated; F19.10 Other psychoactive substance abuse, uncomplicated; F17.210 Nicotine dependence, cigarettes, uncomplicated; D64.9 Anemia, unspecified; B18.2 Chronic viral hepatitis C; Z71.6 Tobacco abuse counseling; E55.9 Vitamin D deficiency, unspecified; R91.1 Solitary pulmonary nodule; X58.XXXA Exposure to other specified factors, initial encounter; Y93.9 Activity, unspecified; Y92.89 Other specified places as the place of occurrence of the external cause; Y99.8 Other external cause status; Z53.21 Procedure and treatment not carried out due to patient leaving prior to being seen by health care provider; Z90.49 Acquired absence of other specified parts of digestive tract; Z82.49 Family history of ischemic heart disease and other diseases of the circulatory system; Z68.24 Body mass index [BMI] 24.0-24.9, adult

== ENCOUNTER 2017-09-27 12:46 | Inpatient (IN) | payer OTHER ==
[2017-09-27] VITALS (7 sets, daily range): BP systolic 93–109; BP diastolic 51–63
[~2017-09-27] VITALS: Ht 175 cm; Wt 65.1 kg
--- NOTE | ~2017-09-27 | CON ---
[place], [place] REPORT OF CONSULTATION NAME: SUSANNE CHINO JR UNIT #: [id number] ROOM: 420 DOCTOR: TOYIN WHITE MD BIRTHDATE: [birth year] DOS: 09/28/2017 REASON FOR CONSULTATION: The patient was seen at his bedside today, 09/28/2017 for reassessment of endocarditis. CHIEF COMPLAINT: Rib pain, fevers, chills, weakness and malaise. HISTORY OF PRESENT ILLNESS: The patient is a 41-year-old man who has a history of intravenous drug use. He was recently admitted to the hospital with chest pain and found to have multiple broken ribs. Blood cultures were positive for MRSA. A YENNY showed vegetations on the tricuspid valve as well as small vegetations on the aortic valve. Although, there were multiple vegetations, they were all less than 1 cm in diameter. There did not appear to be any substantial damage to valve function and therefore it was felt that the patient could be treated medically. After a few days of therapy; however, he signed out AMA. We had debated inserting a long-term catheter such as a PICC line, but it was felt that this was ill advised because of his history of IV drug abuse. Indeed, the patient states that as soon as he left the hospital, he did "shoot up." He became more ill; however, and returned to the hospital on this occasion for reassessment. Blood cultures have been drawn and are again positive for gram-positive cocci in pairs and clusters consistent with staph aureus. PAST MEDICAL HISTORY: Includes 1. Hepatitis C. 2. IV heroin abuse. 3. Tobacco abuse. 4. Staph aureus bacteremia with vegetations documented on the patient's aortic and tricuspid valve by transesophageal echocardiography, 09/19/2017. 5. History of carpal tunnel repair. 6. Cholecystectomy. FAMILY HISTORY: The patient's mother has hypertension and atrial fibrillation and is alive at age 59. He does not know much about his father. MEDICATIONS: Prior to admission, the patient has no known home medications. ALLERGIES: The patient has no known drug allergies. REVIEW OF SYSTEMS: The patient denies diplopia, loss of vision or focal weakness. He has had fevers, chills and malaise. He denies cough, but he has had some dyspnea. He states that it hurts to breathe. He denies hemoptysis or hematemesis. He has had some nausea and anorexia. He denies bleeding in his stools or urine. He denies any skin rashes. He denies any peripheral edema, polyuria or polydipsia. He denies heat or cold intolerance. The remainder of the review of systems is negative except as noted above. SOCIAL HISTORY: The patient is an active abuser of intravenous heroin and cocaine. He also smokes cigarettes. He does not consume alcohol. [place], [place] REPORT OF CONSULTATION NAME: SUSANNE CHINO JR UNIT #: [id number] ROOM: 420 DOCTOR: TOYIN WHITE MD BIRTHDATE: [birth year] PHYSICAL EXAMINATION: GENERAL: The patient is a slender white male who looks older than his stated age. VITAL SIGNS: Pulse is 78 and regular, blood pressure is 97/56. He is afebrile. He weighs 65.1 kg and has a body mass index of 21.3. HEENT: Normocephalic, atraumatic. Extraocular muscles are intact. Sclerae are clear. I did not see any scleral hemorrhages. Pupils are equal, round and react to light. The oral mucosa is moist. Tongue is midline. NECK: Supple. He has no jugular distention or hepatojugular reflux. Carotids are full and I heard no bruits. He had no neck or supraclavicular masses and no thyromegaly. LUNGS: Respirations are unlabored. His chest is clear to auscultation and percussion. He has decreased breath sounds at the bases. He has no presacral edema. He does have chest wall tenderness. CARDIOVASCULAR: His heart has a regular rhythm. He has a grade 3/6 systolic murmur along the left sternal border. I did not hear any diastolic murmurs. There are no apical murmurs. He has a soft fourth heart sound, but no third heart sound. The PMI is not displaced. He has no precordial heave, lift or thrill. ABDOMEN: Soft and normally active without masses, organomegaly or bruits. EXTREMITIES: Showed no edema. He does not have any splinter hemorrhages, Tapia spots or Janeway lesions. LABORATORY DATA: I reviewed his electrocardiogram, it showed sinus rhythm. The HI interval was normal. No acute ST changes were seen. Hemoglobin is 9.9, hematocrit 30.2. He has 6300 white cells and 183,000 platelets. Sodium is 136, potassium 3.4, chloride 105, CO2 is 28, BUN 9 and creatinine 0.64. Troponin levels have been negative. Drug screen is positive for opiates and cocaine. IMPRESSIONS: 1. 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 However, the patient still has positive blood cultures. 2. YENNY documented vegetations on the aortic and tricuspid valves. 3. IV drug abuse. PLAN: Thus far, the patient does not show any evidence for severe valve injury; however, this certainly is possible if he continues to avoid effective treatment. I did speak to the patient at length about the importance of his complying with the medical management of his endocarditis and explained to him that he would have to endure 6 uninterrupted weeks of therapy in order to have any chances of curing this infection. I also told him that if he were to allow his infection to get worse, he would probably require open heart surgery in addition to antibiotics. Hopefully, at this point antibiotics alone are all that we need. 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 This has a potential of making his infection worse [place], [place] REPORT OF CONSULTATION NAME: SUSANNE CHINO JR UNIT #: [id number] ROOM: 420 DOCTOR: TOYIN WHITE MD BIRTHDATE: [birth year] rather than better. For now, I think that the medication should be given through peripheral IVs as long as possible. I thank the hospitalist physicians for asking our advice regarding his care. TOYIN WHITE MD CM:CONSTR:REPORT OF CONSULTATION 39 09/28/172149 interface
--- NOTE | ~2017-09-27 | PR ---
[place], [place] PROGRESS NOTE NAME: [facility]INO JR [id number] UNIT #: [id number] ROOM: 420 DOCTOR: MITUL VILLANUEVA,DECEMBER BIRTHDATE: [birth year] DOS: 10/01/2017 SUBJECTIVE: The patient is a 41-year-old male who is being followed for endocarditis. He has a high-grade MRSA bacteremia. He is an IV drug abuser and he was here a couple weeks ago, was diagnosed with endocarditis. He has vegetations of aortic and tricuspid valves. He left the hospital AMA after only approximately a week of treatment. He returned on the . He remains on vancomycin and Ancef. All of his blood cultures up until today have been positive once again for MRSA. The vancomycin NEFTALI is 2. He is currently again receiving vancomycin and Ancef. He had positive blood cultures this , the as well as on now have gram-positive cocci in clusters. He complains of rib pain, especially on the right as well as some chest discomfort when he breathes in, very minimal back pain, which he attributes to the bed, but not particularly bothersome. No issues in the areas where he shot up. No nausea, vomiting or diarrhea. No shortness of breath. No cough. He has been afebrile. PHYSICAL EXAMINATION: VITAL SIGNS: Show temperature 98.7, pulse 84, respirations 16, BP 107/58. GENERAL: Alert and oriented 41-year-old male, in no acute distress. HEAD, EYES, EARS, NOSE AND THROAT: Normocephalic. No thrush. LUNGS: Clear to auscultation bilaterally. Respirations even and unlabored. HEART: Regular rhythm. No murmur appreciated. ABDOMEN: Nondistended, positive bowel sounds. EXTREMITIES: No edema or deformity. Scarring of the upper extremities consistent with his IV drug use. BACK: He has no tenderness along palpation of the spine. LABORATORY DATA: WBC is 9.0, platelets 257. BUN 5, creatinine 0.7. HIV is negative. His hepatitis panel is pending. He has been positive for hep C. His toxicology at the time of his admission was positive for opiates and cocaine. Last vancomycin trough was on the 13 13.5. Chest x-ray on admission showed no infiltrates. CURRENT MEDICATIONS: Include Toradol, Ancef, Requip, Robaxin, Vistaril, Bentyl, vancomycin, Tylenol, Lovenox, vitamin D, Restoril, Zofran, milk of mag. 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 He is currently on vancomycin and Ancef, which will be continued. Hep C, which if he quits drug use needs to be addressed. Continued polysubstance abuse. Case discussed with Dr. Idalia Moeller. DECEMBER AKY BAUMAN [place], [place] PROGRESS NOTE NAME: SUSANNE CHINO JR UNIT #: [id number] ROOM: [facility] DOCTOR: MITUL VILLANUEVA BIRTHDATE: [birth year] IDALIA MOELLER MD CM:PNTRANS [phone] MITUL VILLANUEVA 10/01/17 2311 interface
--- NOTE | ~2017-09-27 | PR ---
[place], [place] PROGRESS NOTE NAME: SUSANNE CHINO JR UNIT #: [id number] ROOM: 420 DOCTOR: TOYIN WHITE MD BIRTHDATE: [birth year] DOS: 09/30/2017 SUBJECTIVE: The patient was seen at his bedside today, 09/30/2017 for followup of his staph endocarditis. The patient seems more alert today. He still complains of mild chest pain, total body pain and rib pain. He denies any dyspnea. He has not had any cough recently. PHYSICAL EXAMINATION: VITAL SIGNS: On exam today, his pulse is 66 and regular, blood pressure is 104/54. He is afebrile. He weighs 65.1 kilograms with a body mass index of 21.3. HEENT: Normocephalic, atraumatic. NECK: Supple. He has no jugular distention. Carotids are full. LUNGS: Respirations are unlabored. His chest is clear to auscultation and percussion. He has no presacral edema. HEART: Has a regular rhythm. He has a fourth heart sound, but no third heart sound. He has a grade 2/6 systolic ejection murmur along the left sternal border. No diastolic murmurs are heard. ABDOMEN: Soft and normally active without masses, organomegaly or bruits. EXTREMITIES: Showed no edema. Peripheral pulses are palpable bilaterally. IMPRESSION: 1. Staphylococcus aureus bacterial endocarditis with methicillin-resistant Staphylococcus. 2. YENNY documented vegetations on the aortic and tricuspid valves. 3. History of IV drug abuse, probably ongoing. PLAN: He does not show any acute evidence for deterioration of his valve function and does not have any change on his cardiogram monitors. For now continued IV antibiotic therapy is desirable. According to notes in the chart, the patient has contemplated leaving the hospital again prior to completing his therapy. On this occasion, however, there are plans to send him home on oral medications. even though these may not be as effective as continued IV medications. Certainly, the recommendation will have to come from the ID Service. We will continue to follow him intermittently. I thank the hospitalist service for asking our advice regarding his care. [place], [place] PROGRESS NOTE NAME: SUSANNE CHINO JR UNIT #: [id number] ROOM: 420 DOCTOR: TOYIN WHITE MD BIRTHDATE: [birth year] TOYIN WHITE MD CM:PNTRANS [phone] TOYIN WHITE MD 09/30/17 1332 interface
--- NOTE | ~2017-09-27 | PR ---
[place], [place] PROGRESS NOTE NAME: [facility]NE [facility]INO JR [id number] UNIT #: [id number] ROOM: 420 DOCTOR: MITUL VILLANUEVA,DECEMBER BIRTHDATE: [birth year] DOS: 10/02/2017 SUBJECTIVE: The patient is being followed for MRSA endocarditis with tricuspid valve and aortic valve vegetations. He had been on antibiotics, left AMA, came back and again septic. He has had repeated positive blood cultures despite vancomycin as well as Ancef. His blood cultures were positive the th, , , the is also coming back positive. He had more blood cultures repeated today. He complains of right rib pain. He has had studies that demonstrate fractures of right ribs. No cough or shortness of breath. No nausea or vomiting, no diarrhea, no rash or itch. He has been afebrile. CURRENT MEDICATIONS: Include Percocet, Toradol, Ancef, Requip, Robaxin, Vistaril, Bentyl, vancomycin, Tylenol, Lovenox, vitamin D, Restoril, Zofran, milk of magnesia. PHYSICAL EXAMINATION: VITAL SIGNS: Temperature 98.2, pulse 81, respirations 20, BP 106/41. GENERAL: A 41-year-old male, somewhat toxic in appearance. THROAT: Normocephalic, no thrush. LUNGS: Clear to auscultation bilaterally. Respirations even and unlabored. HEART: Regular rhythm with murmur noted. This is newly appreciated from my standpoint. ABDOMEN: Soft, nontender, positive bowel sounds, nondistended. EXTREMITIES: No edema, deformity or cyanosis, skin changes with upper extremities consistent with his IV drug abuse. No signs of abscesses or cellulitis. ASSESSMENT: Endocarditis with high-grade MRSA bacteremia, unable to clear the blood cultures. He left AMA interrupted his therapy, may be only a week into treatment. PLAN: He is to continue the vancomycin and Ancef. At this point, given the murmur and consistent positive blood cultures, I think he needs to have a 2D echocardiogram. Cardiology is following to evaluate the valves at this point. Follow up on his cultures. ADDENDUM After reviewing the chart, labs and radiographs, I agree the above plans as described. We will follow the patient up clinically and adjust accordingly. DECEMBER KAY BAUMAN [place], [place] PROGRESS NOTE NAME: LULÚSUSANNE NEVAREZ JR UNIT #: [id number] ROOM: 420 DOCTOR: MITUL [facility] PHARMACIST,DECEMBER BIRTHDATE: [birth year] IDALIA MOELLER MD CM:PNTRANS [phone] MITUL VILLANUEVA 10/03/17 0832 interface
--- NOTE | ~2017-09-27 | PR ---
[place], [place] PROGRESS NOTE NAME: SUSANNE CHINO JR UNIT #: [id number] ROOM: 420 DOCTOR: SUNNI VILLAFUERTE,IDALIA Barron BIRTHDATE: [birth year] DOS: 10/01/2017 ADDENDUM After reviewing the chart, labs, microbiology, I agree with the plans as described above. We will follow the patient up clinically and adjust accordingly. IDALIA MOELLER MD CM:PNTRANS [phone] IDALIA MOELLER MD 10/06/17 1602 interface
--- NOTE | ~2017-09-27 | PR ---
[place], [place] PROGRESS NOTE NAME: [facility] JR [id number] UNIT #: [id number] ROOM: 420 DOCTOR: TOYIN WHITE MD BIRTHDATE: [birth year] DOS: 10/03/2017 The patient was seen today at his bedside, 10/03/2017, for followup of endocarditis. The patient still feels poorly. He denies chills, but his blood pressure has gradually decreased. Heart rate remains controlled. He denies chest pain or dyspnea. He does have some abdominal discomfort. PHYSICAL EXAMINATION: VITAL SIGNS: Today, his pulse 78 and regular, blood pressure 99/51. He is afebrile. He weighs 65.1 kilograms with a body mass index 21.3. HEENT: Normocephalic and atraumatic. Extraocular muscles are intact. Sclerae are clear and I saw no scleral hemorrhages. His oral mucosa is moist. NECK: Supple. He has no jugular distention or hepatojugular reflux. Carotids are full. LUNGS: Respirations are unlabored. His chest is clear. HEART: Has a regular rhythm. He has a grade 3/6 systolic ejection murmur along the left sternal border and a grade 3/6 decrescendo diastolic murmur along the left sternal border as well. The diastolic murmur is new. He does have a grade 2/6 holosystolic murmur at the apex. ABDOMEN: Soft and normally active. EXTREMITIES: Showed no edema. He has no splinter hemorrhages or Tapia spots. A CAT scan was done today of his chest and showed that he does have septic emboli in his lungs as well as new finding in the spleen and left kidney suggesting splenic and renal infarctions. LABORATORY DATA: Hemoglobin is 11.2, white count 9500, platelet count 263,000. BUN 8, creatinine 0.72. Sodium 138, potassium 4.0. IMPRESSION: 1. Staph aureus bacteremia and endocarditis. 2. Newly documented aortic insufficiency murmur. This likely does indicate that the infection is progressing on his aortic valve. 3. 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 4. Septic pulmonary emboli consistent with embolic phenomena from the tricuspid valve. 5. Hepatitis C. 6. History of IV drug abuse. PLAN: We will repeat an echocardiogram today to reassess aortic and tricuspid valve function. Continued IV antibiotics are certainly indicated. The patient may actually require valve surgery if his valve function is deteriorating and if the size of his vegetations is increasing. I thank the hospitalist physicians for asking our advice regarding the patient's care. [place], [place] PROGRESS NOTE NAME: SUSANNE CHINO JR UNIT #: [id number] ROOM: 420 DOCTOR: TOYIN WHITE MD BIRTHDATE: [birth year] TOYIN WHITE MD CM:PNTRANS [phone] TOYIN WHITE MD 10/10/17 0804 interface
[2017-09-27 13:34] LABS: HEMATOCRIT 31.9 % (42.0-52.0); HEMOGLOBIN 10.8 g/dl (14.0-18.0); MEAN CELL VOLUME 87.6 fl (80.0-94.0); MEAN CORPUSCULAR HGB 29.7 pg (27.0-31.0); MEAN CORPUSCULAR HGB CONC 33.9 g/dl (33.0-37.0); MEAN PLATELET VOLUME 9.4 fl (9.6-12.3); PLATELET COUNT AUTOMATED 233 10*3/uL (130-400); RED BLOOD COUNT 3.64 10*6/uL (4.50-5.90); RED CELL DISTRI WIDTH 14.2 % (0-14.5)
[2017-09-27 13:42] LABS: INTERNATIONAL NORM RATIO 1.2 (2.0-3.5)
[2017-09-27 13:51] LABS: PLATELET SUFFICIENCY NORMAL (NORMAL); TOTAL CELLS COUNTED 100 #CELLS
[2017-09-27 13:52] LABS: ALBUMIN 2.4 gm/dl (3.1-4.5); ALKALINE PHOSPHATASE 105 U/L (45-117); BUN 10 mg/dl (7-24); CHLORIDE 95 mmol/L (98-107); POTASSIUM 2.9 mmol/L (3.5-5.1); SGOT/AST 19 IU/L (3-35); SGPT/ALT 16 U/L (12-78); SODIUM 129 mmol/L (136-145)
[2017-09-27 13:56] LABS: TOTAL PROTEIN 7.7 gm/dL (6.4-8.2)
[2017-09-27 13:58] LABS: TROPONIN I < 0.015 ng/ml (<0.045)
[2017-09-27 18:46] LABS: URINE AMPHETAMINES < 1000 (1000ng/ml); URINE BARBITURATES < 200 (200ng/ml); URINE BENZODIAZEPINES < 200 (200ng/ml); URINE CANNABINOIDS (THC) < 50 (50ng/ml); URINE COCAINE > 300 (300ng/ml); URINE METHADONE < 300 (300ng/ml); URINE OPIATES > 300 (300ng/ml); URINE PHENCYCLIDINE < 25 (25ng/ml)
[2017-09-28] VITALS: BP 105/57
[2017-09-28 06:21] LABS: ALBUMIN 1.9 gm/dl (3.1-4.5); ALKALINE PHOSPHATASE 83 U/L (45-117); BUN 9 mg/dl (7-24); CHLORIDE 105 mmol/L (98-107); CREATININE 0.64 mg/dL (0.70-1.30); PHOSPHOROUS 2.3 mg/dL (2.5-4.9); POTASSIUM 3.4 mmol/L (3.5-5.1); SGOT/AST 24 IU/L (3-35); SGPT/ALT 18 U/L (12-78); SODIUM 136 mmol/L (136-145); TOTAL PROTEIN 6.8 gm/dL (6.4-8.2)
[2017-09-28 06:26] LABS: BASO % 0.3 % (0.0-1.0); EOS % 0.3 % (1.0-4.0); HEMATOCRIT 30.2 % (42.0-52.0); HEMOGLOBIN 9.9 g/dl (14.0-18.0); LYMPH # 0.7 10*3/uL (1.3-4.4); MEAN CELL VOLUME 90.1 fl (80.0-94.0); MEAN CORPUSCULAR HGB 29.6 pg (27.0-31.0); MEAN CORPUSCULAR HGB CONC 32.8 g/dl (33.0-37.0); MEAN PLATELET VOLUME 9.7 fl (9.6-12.3); MONO # 0.4 10*3/uL (0.1-1.0); MONO % 5.6 % (3.0-9.0); NEUT # 5.2 10*3/uL (2.3-7.9); NEUT % 82.3 % (47.0-73.0); PLATELET COUNT AUTOMATED 183 10*3/uL (130-400); RED BLOOD COUNT 3.35 10*6/uL (4.50-5.90); RED CELL DISTRI WIDTH 14.4 % (0-14.5); WHITE BLOOD COUNT 6.3 10*3/uL (4.8-10.8)
[2017-09-28 08:00] VITALS: BP 102/50; BP 99/57
[2017-09-28 12:00] VITALS: BP 98/55
[2017-09-28 16:00] VITALS: BP 136/86; BP 97/56
[2017-09-28 20:00] VITALS: BP 106/60
[2017-09-29] VITALS: BP 110/68
[2017-09-29 06:46] LABS: BASO % 0.3 % (0.0-1.0); EOS % 0.3 % (1.0-4.0); HEMATOCRIT 31.3 % (42.0-52.0); HEMOGLOBIN 10.3 g/dl (14.0-18.0); LYMPH # 1.3 10*3/uL (1.3-4.4); MEAN CELL VOLUME 88.9 fl (80.0-94.0); MEAN CORPUSCULAR HGB 29.3 pg (27.0-31.0); MEAN CORPUSCULAR HGB CONC 32.9 g/dl (33.0-37.0); MEAN PLATELET VOLUME 10.2 fl (9.6-12.3); MONO # 0.7 10*3/uL (0.1-1.0); NEUT # 4.5 10*3/uL (2.3-7.9); NEUT % 68.9 % (47.0-73.0); PLATELET COUNT AUTOMATED 230 10*3/uL (130-400); RED BLOOD COUNT 3.52 10*6/uL (4.50-5.90); RED CELL DISTRI WIDTH 14.5 % (0-14.5); WHITE BLOOD COUNT 6.5 10*3/uL (4.8-10.8)
[2017-09-29 06:54] LABS: BUN 6 mg/dl (7-24); CHLORIDE 100 mmol/L (98-107); CREATININE 0.67 mg/dL (0.70-1.30); PHOSPHOROUS 2.9 mg/dL (2.5-4.9); POTASSIUM 3.7 mmol/L (3.5-5.1); SODIUM 134 mmol/L (136-145)
[2017-09-29 08:00] VITALS: BP 99/50
[2017-09-29 12:00] VITALS: BP 110/50
[2017-09-29 14:00] VITALS: BP 110/50
[2017-09-29 16:00] VITALS: BP 111/61
[2017-09-29 20:00] VITALS: BP 103/54
[2017-09-30] VITALS: BP 105/59
[2017-09-30 07:25] LABS: HEMATOCRIT 31.6 % (42.0-52.0); HEMOGLOBIN 10.1 g/dl (14.0-18.0); MEAN CELL VOLUME 88.3 fl (80.0-94.0); MEAN CORPUSCULAR HGB 28.2 pg (27.0-31.0); MEAN PLATELET VOLUME 10.4 fl (9.6-12.3); PLATELET COUNT AUTOMATED 248 10*3/uL (130-400); RED BLOOD COUNT 3.58 10*6/uL (4.50-5.90); RED CELL DISTRI WIDTH 14.5 % (0-14.5); WHITE BLOOD COUNT 7.8 10*3/uL (4.8-10.8)
[2017-09-30 07:37] LABS: BUN 6 mg/dl (7-24); CHLORIDE 100 mmol/L (98-107); CREATININE 0.66 mg/dL (0.70-1.30); POTASSIUM 4.5 mmol/L (3.5-5.1); SODIUM 134 mmol/L (136-145)
[2017-09-30 07:51] LABS: ATYPICAL LYMPHS 1 % (0-0); PLATELET SUFFICIENCY NORMAL (NORMAL); TOTAL CELLS COUNTED 100 #CELLS
[2017-09-30 08:00] VITALS: BP 104/54
[2017-09-30 12:00] VITALS: BP 107/54
[2017-09-30 16:00] VITALS: BP 110/65
[2017-09-30 20:00] VITALS: BP 105/58
[2017-10-01] VITALS: BP 102/55
[2017-10-01 08:00] VITALS: BP 105/56
[2017-10-01 08:29] LABS: BASO % 0.3 % (0.0-1.0); EOS # 0.1 10*3/uL (0.0-0.4); EOS % 0.6 % (1.0-4.0); HEMATOCRIT 33.7 % (42.0-52.0); LYMPH # 1.9 10*3/uL (1.3-4.4); LYMPH % 21.5 % (27.0-41.0); MEAN CELL VOLUME 87.1 fl (80.0-94.0); MEAN CORPUSCULAR HGB 28.4 pg (27.0-31.0); MEAN CORPUSCULAR HGB CONC 32.6 g/dl (33.0-37.0); MEAN PLATELET VOLUME 9.3 fl (9.6-12.3); MONO # 0.7 10*3/uL (0.1-1.0); MONO % 7.4 % (3.0-9.0); NEUT # 6.3 10*3/uL (2.3-7.9); NEUT % 69.9 % (47.0-73.0); PLATELET COUNT AUTOMATED 257 10*3/uL (130-400); RED BLOOD COUNT 3.87 10*6/uL (4.50-5.90); RED CELL DISTRI WIDTH 14.4 % (0-14.5)
[2017-10-01 08:38] LABS: BUN 5 mg/dl (7-24); CHLORIDE 102 mmol/L (98-107); POTASSIUM 3.9 mmol/L (3.5-5.1); SODIUM 134 mmol/L (136-145)
[2017-10-01 09:07] LABS: HEPATITIS B SURFACE AG Negative (Negative); HIV 1+2 AB + HIV1 P24 AG Non Reactive (Non Reactive)
[2017-10-01 12:00] VITALS: BP 110/53; BP 110/60
[2017-10-01 16:00] VITALS: BP 107/58
[2017-10-01 20:00] VITALS: BP 101/48
[2017-10-02] VITALS: BP 93/38
[2017-10-02 07:55] LABS: BUN 8 mg/dl (7-24); CHLORIDE 103 mmol/L (98-107); CREATININE 0.72 mg/dL (0.70-1.30); SODIUM 138 mmol/L (136-145)
[2017-10-02 08:00] VITALS: BP 102/48
[2017-10-02 09:15] LABS: BASO # 0.1 10*3/uL (0.0-0.1); BASO % 0.5 % (0.0-1.0); EOS # 0.1 10*3/uL (0.0-0.4); EOS % 0.6 % (1.0-4.0); HEMATOCRIT 33.7 % (42.0-52.0); HEMOGLOBIN 11.2 g/dl (14.0-18.0); LYMPH # 2.1 10*3/uL (1.3-4.4); LYMPH % 22.1 % (27.0-41.0); MEAN CORPUSCULAR HGB 29.2 pg (27.0-31.0); MEAN CORPUSCULAR HGB CONC 33.2 g/dl (33.0-37.0); MEAN PLATELET VOLUME 9.5 fl (9.6-12.3); MONO # 0.7 10*3/uL (0.1-1.0); MONO % 6.8 % (3.0-9.0); NEUT # 6.6 10*3/uL (2.3-7.9); NEUT % 69.4 % (47.0-73.0); PLATELET COUNT AUTOMATED 263 10*3/uL (130-400); RED BLOOD COUNT 3.83 10*6/uL (4.50-5.90); RED CELL DISTRI WIDTH 14.5 % (0-14.5); WHITE BLOOD COUNT 9.5 10*3/uL (4.8-10.8)
[2017-10-02 12:00] VITALS: BP 110/50
[2017-10-02 16:00] VITALS: BP 106/41
[2017-10-02 20:00] VITALS: BP 120/53
[2017-10-03] VITALS: BP 100/40
[2017-10-03 08:00] VITALS: BP 99/51
[2017-10-03 08:14] LABS: HEPATITIS C AB >11.0 (0.0-0.9)
[2017-10-03 12:00] VITALS: BP 106/42
[2017-10-03 16:00] VITALS: BP 110/50
[2017-10-03 20:41] VITALS: BP 113/48
== END 2017-10-03 21:07 | disposition short-term general hospital (02) | DRG 871 ==
LOC: ED 12:46 → EDHOLD 13:57 → 4E 13:57
PROVIDERS: Emergency Medicine; Internal Medicine; Physician Assistant; Student in an Organized Health Care Education/Training Program
DX: A41.9 Sepsis, unspecified organism (principal); I33.0 Acute and subacute infective endocarditis; I26.90 Septic pulmonary embolism without acute cor pulmonale; E87.2 Acidosis; I95.9 Hypotension, unspecified; E87.1 Hypo-osmolality and hyponatremia; E87.8 Other disorders of electrolyte and fluid balance, not elsewhere classified; F11.20 Opioid dependence, uncomplicated; N28.0 Ischemia and infarction of kidney; R65.20 Severe sepsis without septic shock; D72.825 Bandemia; E87.6 Hypokalemia; F19.10 Other psychoactive substance abuse, uncomplicated; B18.2 Chronic viral hepatitis C; F14.10 Cocaine abuse, uncomplicated; B95.62 Methicillin resistant Staphylococcus aureus infection as the cause of diseases classified elsewhere; R73.9 Hyperglycemia, unspecified; D64.9 Anemia, unspecified; E59 Dietary selenium deficiency; R91.8 Other nonspecific abnormal finding of lung field; F17.210 Nicotine dependence, cigarettes, uncomplicated; E78.5 Hyperlipidemia, unspecified; B19.20 Unspecified viral hepatitis C without hepatic coma; E55.9 Vitamin D deficiency, unspecified; I35.8 Other nonrheumatic aortic valve disorders; S22.43XD Multiple fractures of ribs, bilateral, subsequent encounter for fracture with routine healing; Z90.49 Acquired absence of other specified parts of digestive tract; Z82.49 Family history of ischemic heart disease and other diseases of the circulatory system

== ENCOUNTER 2018-02-04 03:49 | Emergency (ER) | payer OTHER ==
[~2018-02-04] VITALS: Ht 175.2 cm; Wt 72.6 kg
[2018-02-04 04:15] LABS: HEMATOCRIT 42.6 % (42.0-52.0); HEMOGLOBIN 13.8 g/dl (14.0-18.0); MEAN CELL VOLUME 82.9 fl (80.0-94.0); MEAN CORPUSCULAR HGB 26.8 pg (27.0-31.0); MEAN CORPUSCULAR HGB CONC 32.4 g/dl (33.0-37.0); NUCLEATED RED BLOOD CELL 0.2 % (0.0-0.0); RED BLOOD COUNT 5.14 10*6/uL (4.50-5.90); RED CELL DISTRI WIDTH 16.2 % (0-14.5); WHITE BLOOD COUNT 23.6 10*3/uL (4.8-10.8)
[2018-02-04 04:20] LABS: PLATELET COUNT AUTOMATED 4 10*3/uL (130-400)
[2018-02-04 04:25] LABS: ACT PARTIAL THROMBO TIME 60.4 SECONDS (20.8-31.5)
[2018-02-04 04:33] LABS: ALBUMIN 2.8 gm/dl (3.1-4.5); ALKALINE PHOSPHATASE 184 U/L (45-117); BUN 61 mg/dl (7-24); CHLORIDE 89 mmol/L (98-107); CREATININE 3.33 mg/dL (0.70-1.30); LIPASE 44 U/L (73-393); POTASSIUM 3.6 mmol/L (3.5-5.1); SGOT/AST 309 IU/L (3-35); SGPT/ALT 106 U/L (12-78); SODIUM 129 mmol/L (136-145); TOTAL PROTEIN 6.6 gm/dL (6.4-8.2)
[2018-02-04 04:36] LABS: ETHYL ALCOHOL < 3.0 mg/dl (<3)
[2018-02-04 04:40] LABS: ABG BASE EXCESS 12.8 mmol/L (-2.0-2.0); ABG HCO3 41.1 mmol/l (22-26); ARTERIAL BLOOD GAS PH 7.342 (7.35-7.45); ARTERIAL BLOOD GAS PO2 59.2 mmHg (80-90)
[2018-02-04 04:44] LABS: ARTERIAL BLOOD GAS PCO2 78.2 mmHg (35-45)
[2018-02-04 04:49] LABS: PLATELET SUFFICIENCY LOW (NORMAL); TOTAL CELLS COUNTED 100 #CELLS
[2018-02-04 04:50] LABS: BURR CELLS MODERATE
[2018-02-04 05:11] VITALS: BP 56/25
[2018-02-04 05:13] LABS: BILIRUBIN NEGATIVE (NEGATIVE); BLOOD 3+ (NEGATIVE); CLARITY CLOUDY (CLEAR); COLOR RED (YELLOW); GLUCOSE TRACE (NEGATIVE); KETONE TRACE (NEGATIVE); LEUKO ESTERASE TRACE (NEGATIVE); NITRITE POSITIVE (NEGATIVE); PH 5.5 (5.0-9.0); UROBILINOGEN >= 8.0 E.U./dl (0.2-1.0)
[2018-02-04 05:23] LABS: RBC TNTC rbc/hpf (0-2)
[2018-02-04 05:26] LABS: URINE AMPHETAMINES < 1000 (1000ng/ml); URINE BARBITURATES < 200 (200ng/ml); URINE BENZODIAZEPINES < 200 (200ng/ml); URINE CANNABINOIDS (THC) < 50 (50ng/ml); URINE COCAINE > 300 (300ng/ml); URINE METHADONE < 300 (300ng/ml); URINE OPIATES > 300 (300ng/ml)
[2018-02-04 05:27] LABS: URINE PHENCYCLIDINE < 25 (25ng/ml)
== END 2018-02-04 05:50 | disposition expired ==
LOC: ED 03:49
PROVIDERS: Emergency Medicine Emergency Medical Services
DX: I46.9 Cardiac arrest, cause unspecified (principal); I21.29 ST elevation (STEMI) myocardial infarction involving other sites; I61.9 Nontraumatic intracerebral hemorrhage, unspecified; F11.10 Opioid abuse, uncomplicated; D69.6 Thrombocytopenia, unspecified; F17.200 Nicotine dependence, unspecified, uncomplicated; Z86.79 Personal history of other diseases of the circulatory system; Z90.49 Acquired absence of other specified parts of digestive tract; Z98.890 Other specified postprocedural states